=== PATIENT | female | born 1975 | race Caucasian/White ===

== ENCOUNTER → 2016-03-03 | Outpatient (CLI) | payer BC ==
[~2016-03-03] MED LIST: IMMODIUM; PRENTAB26 PO; [UNRECOGNIZED DRUG - OTHER] PO
== END | disposition home or self-care (01) ==
LOC: C.PAPS 12:11
PROVIDERS: ATTEND Obstetrics & Gynecology
DX: Z01.419 Encounter for gynecological examination (general) (routine) without abnormal findings (principal)

== ENCOUNTER → 2016-04-27 | Outpatient (CLI) | payer BC | END | disposition home or self-care (01) | LOC: C.LABSPEC 13:15 | PROVIDERS: ATTEND Obstetrics & Gynecology | DX: N93.0 Postcoital and contact bleeding (principal) ==

== ENCOUNTER → 2016-09-22 | Outpatient (CLI) | payer BC ==
[~2016-09-22] MED LIST changes: +GADOXETATE DISODIUM (NON-WT BASED PROCEDURE) IV PRN
--- NOTE | 2016-09-22 11:17 | DIAGNOSTIC IMAGING REPORT ---
LIVER COMBO CLINICAL HISTORY: Hemangioma.. COMPARISON STUDY: 10/10/2015. TECHNIQUE: MRI of the abdomen is performed transverse T1 and T2-weighted sequences in the axial and coronal planes. Contrast enhanced sequences were acquired following the IV administration of 10 cc heel this. FINDINGS: Lower chest: No pleural effusion is identified. The heart is normal in size. Liver: Uniform in signal. Left hepatic lobe cavernous hemangioma unchanged. Several very tiny hepatic adenomas unchanged 22 diminished/resolved. There are no new or interval findings. Gallbladder: Unremarkable. Spleen: Normal in size and signal intensity. Pancreas: Unremarkable. Adrenal glands: Unremarkable. Kidneys: The kidneys are normal in size and without hydronephrosis. The kidneys enhance and excrete symmetrically. Bowel: Visualized portions of the small bowel and colon show no evidence of obstruction. Peritoneum: There is no abdominal ascites. Lymphadenopathy: None. Skeletal structures: Visualized skeletal structures times are normal marrow signal intensity. IMPRESSION: 1. Small stable left hepatic lobe hemangioma. 2. Stable to improved microadenomas of the liver. 3. No new or interval finding. The above report was generated using voice recognition software. It may contain grammatical, syntax or spelling errors. Electronically signed by: Daniele Coreas M.D. 09/22/2016 11:15 AM Dictated Date/Time: 09/22/2016 11:08 AM
== END | disposition home or self-care (01) ==
LOC: C.MRIBC 09:41
PROVIDERS: ATTEND Internal Medicine
DX: D13.4 Benign neoplasm of liver (principal)

== ENCOUNTER → 2017-03-12 | Outpatient (CLI) | payer BC ==
[~2017-03-12] MED LIST changes: -GADOXETATE DISODIUM (NON-WT BASED PROCEDURE) IV PRN
== END | disposition home or self-care (01) ==
LOC: C.PAPS 16:01
PROVIDERS: ATTEND Obstetrics & Gynecology
DX: Z01.419 Encounter for gynecological examination (general) (routine) without abnormal findings (principal)

== ENCOUNTER → 2017-06-09 | Outpatient (CLI) | payer BC ==
[2017-06-09 12:32] LABS: CREATININE 0.87 mg/dl (0.60-1.20)
[2017-06-09 12:47] LABS: ALBUMIN 3.9 gm/dl (3.4-5.0); ALT/SGPT 29 U/L (12-78); AST/SGOT 29 U/L (15-37); BLOOD UREA NITROGEN 13 mg/dl (7-18); CALCIUM 8.9 mg/dl (8.5-10.1); CARBON DIOXIDE 27 mmol/L (21-32); CREATININE 0.87 mg/dl (0.60-1.20); GLUCOSE 76 mg/dl (70-99); POTASSIUM 3.6 mmol/L (3.5-5.1); SODIUM 141 mmol/L (136-145)
[2017-06-09 12:49] LABS: ALKALINE PHOSPHATASE 69 U/L (45-117); TOTAL PROTEIN 6.9 gm/dl (6.4-8.2)
== END | disposition home or self-care (01) ==
LOC: C.LABBFT 07:50
PROVIDERS: ATTEND Specialist
DX: D13.4 Benign neoplasm of liver (principal); K58.9 Irritable bowel syndrome, unspecified

== ENCOUNTER → 2017-06-14 | Outpatient (CLI) | payer BC ==
[~2017-06-14] MED LIST changes: +GADOXETATE DISODIUM (NON-WT BASED PROCEDURE) IV PRN
--- NOTE | 2017-06-14 09:38 | DIAGNOSTIC IMAGING REPORT ---
MRI OF THE ABDOMEN COMBO CLINICAL HISTORY: Hepatic adenomas. COMPARISON STUDY: MRI of the liver dated 09/22/2016 and 12/27/2014. TECHNIQUE: MRI of the abdomen is performed transverse T1 and T2-weighted sequences in the axial and coronal planes. Contrast enhanced sequences were acquired following the IV administration of 10 cc of Eovist. Subtraction imaging was utilized. Diffusion weighted sequences were obtained, and MRCP imaging was performed with 3-D reformats. FINDINGS: Lower chest: No pleural effusion is identified. The heart is normal in size. Liver: The liver is normal in size, contour, and signal intensity. No intrahepatic biliary ductal dilatation is seen. The hepatic veins and portal veins are patent. A 1.5 cm T2 hyperintense lesion is again seen in segment Maira. This demonstrates foci of peripheral discontinuous nodular enhancement end does not retain Eovist on the delayed sequences. This is consistent with a benign hemangioma. The additional enhancing hepatic lesions seen on prior examinations have resolved. No arterially hypervascular lesions are seen on today's examination. No additional lesions are suggested on the diffusion weighted sequences or the extended delayed series. Gallbladder and MRCP images: The gallbladder is not identified and presumed surgically absent. The common bile duct measures up to 8 mm diameter. There are no filling defects identified to suggest choledocholithiasis. The pancreatic duct is normal in caliber. Spleen: Normal in size and signal intensity. Pancreas: Unremarkable. Adrenal glands: Unremarkable. Kidneys: The kidneys are normal in size and without hydronephrosis. The kidneys enhance and excrete symmetrically. Abdominal aorta: Normal in course and caliber. Bowel: Visualized portions of the small bowel and colon show no evidence of obstruction. Moderate fecal retention is observed. Peritoneum: There is no abdominal ascites. Lymphadenopathy: None. Skeletal structures: Visualized skeletal structures times are normal marrow signal intensity. IMPRESSION: 1. There are no arterially hypervascular hepatic lesions identified on today's examination. The lesions seen on prior examinations have resolved. 2. A hemangioma in the left lobe is unchanged from previous. 3. Status post cholecystectomy. Electronically signed by: Dominguez Sr M.D. 06/14/2017 9:37 AM Dictated Date/Time: 06/14/2017 9:08 AM
== END ==
LOC: C.MRIBC 07:53
PROVIDERS: ATTEND Specialist
DX: D13.4 Benign neoplasm of liver (principal); Z90.49 Acquired absence of other specified parts of digestive tract